=== PATIENT | male | born 1945 | race Caucasian/White ===

== ENCOUNTER 2022-09-03 09:43 | Inpatient (IN) ==
[2022-09-03] MEDS ORDERED: ONDANSETRON 4 MG/2 ML VIAL IV STA (10:22)
[2022-09-03] MEDS ORDERED: SODIUM CHLORIDE 0.9% 1,000 ML IV STA (10:22)
[2022-09-03 10:35] LABS: Basophils % 0.6 % (0.0-0.8); Eosinophils # 0.3 10*3/uL (0.0-0.87); Eosinophils % 4.3 % (0.00-10.9); Hematocrit 48.1 VOL% (42.0-52.0); Hemoglobin 15.4 GM/DL (14.0-18.0); Immature Granulocytes % 0.3 %; Immature Granulocytes Absolute 0.02 #; Lymphocytes % 15.6 % (21.2-54.2); Mean Corpuscular Volume 89.9 FL (87-102); Mean Platelet Volume 9.8 FL (9.6-12.0); Monocytes # 0.5 10*3/uL (0.11-0.8); Monocytes % 7.4 % (1.7-12.7); Neutrophils % 71.8 % (38.7-73.9); Platelet Count 175 T/CUMM (130-400); Red Blood Count 5.35 MC/CUMM (3.8-5.5); Red Cell Distribution Width 13.2 % (9.3-17.3); White Blood Count 6.35 T/CUMM (4-12)
[2022-09-03 10:55] LABS: Albumin 3.7 G/DL (3.4-5.0); Bilirubin,Total 0.8 MG/DL (0.20-1.00); Calcium 9.3 MG/DL (8.5-10.1); Osmolality,Calculated 284.4 MOS/KG (273-304); Potassium 4.4 MMOL/L (3.5-5.1); Total Protein 6.9 G/DL (6.4-8.2)
[2022-09-03] MEDS ORDERED: hydrALAZINE 20 MG/1 ML VIAL IV PRN (13:22)
[2022-09-03] MEDS ORDERED: GLUCAGON 1 MG VIAL IM PRN (13:25)
[2022-09-03] MEDS ORDERED: DEXTROSE 10% 250 ML BAG IV PRN (13:34)
[2022-09-03] MEDS: FLUCONAZOLE INJ 100 MG/50 ML PREMIX IV SCH (14:03)
[2022-09-03] MEDS: SODIUM CHLORIDE 0.9% 1,000 ML IV SCH (14:30)
[2022-09-03] MEDS: PANTOPRAZOLE 40 MG VIAL IV SCH (14:30)
[2022-09-03] MEDS: MICONAZOLE 2% CREAM 57 GM TUBE TOP SCH (16:50)
[2022-09-03] MEDS: INSULIN LISPRO 100 UNIT/ML SUBCUT SCH ×2 (17:13→23:37)
[2022-09-04] MEDS: SODIUM CHLORIDE 0.9% 1,000 ML IV SCH ×2 (04:15→19:55)
[2022-09-04] MEDS: INSULIN LISPRO 100 UNIT/ML SUBCUT SCH ×3 (06:21→17:31)
[2022-09-04 06:43] LABS: Basophils # 0.1 10*3/uL (0.0-0.2); Basophils % 0.7 % (0.0-0.8); Eosinophils # 0.4 10*3/uL (0.0-0.87); Eosinophils % 6.3 % (0.00-10.9); Hematocrit 50.9 VOL% (42.0-52.0); Hemoglobin 15.7 GM/DL (14.0-18.0); Immature Granulocytes % 0.1 %; Immature Granulocytes Absolute 0.01 #; Lymphocytes # 1.6 10*3/uL (1.4-4.0); Lymphocytes % 22.9 % (21.2-54.2); Mean Corpuscular HGB Conc 30.8 GM/DL (32-36); Mean Corpuscular Volume 92.7 FL (87-102); Mean Platelet Volume 9.9 FL (9.6-12.0); Monocytes # 0.5 10*3/uL (0.11-0.8); Monocytes % 6.6 % (1.7-12.7); Neutrophils % 63.4 % (38.7-73.9); Platelet Count 204 T/CUMM (130-400); Red Blood Count 5.49 MC/CUMM (3.8-5.5); Red Cell Distribution Width 13.3 % (9.3-17.3); White Blood Count 6.85 T/CUMM (4-12)
[2022-09-04] MEDS: MICONAZOLE 2% CREAM 57 GM TUBE TOP SCH (09:57)
[2022-09-04] MEDS: PANTOPRAZOLE 40 MG VIAL IV SCH (10:33)
[2022-09-04] MEDS: FLUCONAZOLE INJ 100 MG/50 ML PREMIX IV SCH (15:05)
[2022-09-04] MEDS: carvediloL 12.5 MG TABLET PO SCH (17:09)
[2022-09-04] MEDS: LOSARTAN 50 MG TABLET PO SCH (20:49)
[2022-09-05] MEDS: INSULIN LISPRO 100 UNIT/ML SUBCUT SCH ×5 (02:13→21:14)
[2022-09-05] MEDS: ONDANSETRON 4 MG/2 ML VIAL IV PRN ×3 (02:52→15:04)
[2022-09-05 05:39] LABS: Basophils % 0.8 % (0.0-0.8); Eosinophils # 0.3 10*3/uL (0.0-0.87); Eosinophils % 6.1 % (0.00-10.9); Hematocrit 41.8 VOL% (42.0-52.0); Hemoglobin 13.3 GM/DL (14.0-18.0); Immature Granulocytes % 0.2 %; Immature Granulocytes Absolute 0.01 #; Lymphocytes # 0.8 10*3/uL (1.4-4.0); Lymphocytes % 17.1 % (21.2-54.2); Mean Corpuscular HGB Conc 31.8 GM/DL (32-36); Mean Corpuscular Volume 90.5 FL (87-102); Mean Platelet Volume 10.2 FL (9.6-12.0); Monocytes # 0.4 10*3/uL (0.11-0.8); Neutrophils % 66.8 % (38.7-73.9); Platelet Count 136 T/CUMM (130-400); Red Blood Count 4.62 MC/CUMM (3.8-5.5)
[2022-09-05 06:01] LABS: Calcium 8.2 MG/DL (8.5-10.1); Osmolality,Calculated 285.4 MOS/KG (273-304); Potassium 3.7 MMOL/L (3.5-5.1)
[2022-09-05] MEDS: LEVOTHYROXINE 100 MCG TABLET PO SCH (06:04)
[2022-09-05] MEDS: PANTOPRAZOLE 40 MG VIAL IV SCH (08:57)
[2022-09-05] MEDS: ATORVASTATIN 40 MG TABLET PO SCH (08:58)
[2022-09-05] MEDS: carvediloL 12.5 MG TABLET PO SCH ×2 (08:58→17:17)
[2022-09-05] MEDS: MICONAZOLE 2% CREAM 57 GM TUBE TOP SCH (08:59)
[2022-09-05] MEDS ORDERED: ESCITALOPRAM 10 MG TABLET PO SCH (09:00)
[2022-09-05] MEDS: SODIUM CHLORIDE 0.9% 1,000 ML IV SCH ×2 (09:02→22:35)
[2022-09-05] MEDS ORDERED: ONDANSETRON 4 MG/2 ML VIAL IV ONE (09:10)
[2022-09-05] MEDS ORDERED: ONDANSETRON 4 MG/2 ML VIAL IV PRN (09:10)
[2022-09-05] MEDS: LOSARTAN 50 MG TABLET PO SCH (21:11)
[2022-09-05] MEDS: METOCLOPRAMIDE 10 MG/2 ML VIAL IV SCH (21:13)
[2022-09-06] MEDS: METOCLOPRAMIDE 10 MG/2 ML VIAL IV SCH ×3 (05:56→20:46)
[2022-09-06] MEDS: LEVOTHYROXINE 100 MCG TABLET PO SCH (05:56)
[2022-09-06 07:25] LABS: Basophils % 0.7 % (0.0-0.8); Eosinophils # 0.3 10*3/uL (0.0-0.87); Eosinophils % 5.2 % (0.00-10.9); Hematocrit 45.4 VOL% (42.0-52.0); Hemoglobin 14.3 GM/DL (14.0-18.0); Immature Granulocytes % 0.3 %; Immature Granulocytes Absolute 0.02 #; Lymphocytes # 1.1 10*3/uL (1.4-4.0); Lymphocytes % 18.7 % (21.2-54.2); Mean Corpuscular HGB Conc 31.5 GM/DL (32-36); Mean Corpuscular Volume 91.7 FL (87-102); Mean Platelet Volume 9.6 FL (9.6-12.0); Monocytes # 0.4 10*3/uL (0.11-0.8); Monocytes % 7.4 % (1.7-12.7); Neutrophils % 67.7 % (38.7-73.9); Platelet Count 149 T/CUMM (130-400); Red Blood Count 4.95 MC/CUMM (3.8-5.5); White Blood Count 5.93 T/CUMM (4-12)
[2022-09-06 07:41] LABS: Calcium 8.5 MG/DL (8.5-10.1); Potassium 4.1 MMOL/L (3.5-5.1)
[2022-09-06] MEDS: INSULIN LISPRO 100 UNIT/ML SUBCUT SCH ×4 (07:47→21:10)
[2022-09-06] MEDS: PANTOPRAZOLE 40 MG VIAL IV SCH (08:46)
[2022-09-06] MEDS: carvediloL 12.5 MG TABLET PO SCH ×2 (09:08→16:55)
[2022-09-06] MEDS: MICONAZOLE 2% CREAM 57 GM TUBE TOP SCH (10:10)
[2022-09-06] MEDS: ATORVASTATIN 40 MG TABLET PO SCH (12:40)
[2022-09-06] MEDS: SODIUM CHLORIDE 0.9% 1,000 ML IV SCH (17:42)
[2022-09-06] MEDS: LOSARTAN 50 MG TABLET PO SCH (20:46)
[2022-09-07] MEDS: METOCLOPRAMIDE 10 MG/2 ML VIAL IV SCH (04:48)
[2022-09-07] MEDS: LEVOTHYROXINE 100 MCG TABLET PO SCH (05:45)
[2022-09-07] MEDS: INSULIN LISPRO 100 UNIT/ML SUBCUT SCH ×4 (07:30→20:36)
[2022-09-07] MEDS ORDERED: GLUCAGON 1 MG VIAL IM PRN (09:34)
[2022-09-07] MEDS ORDERED: DEXTROSE 50% 25 GM/50 ML VIAL IV PRN (09:34)
[2022-09-07] MEDS ORDERED: ONDANSETRON ODT 4 MG TABLET PO PRN (09:35)
[2022-09-07] MEDS ORDERED: NON-FORMULARY MEDICATION (Insulin Degludec-Liraglutide [Xultophy 100/3.6] 100 unit-3.6 mg SUBCUT SCH (09:35)
[2022-09-07] MEDS: PANTOPRAZOLE 40 MG VIAL IV SCH (09:50)
[2022-09-07] MEDS ORDERED: metFORMIN 500 MG TABLET PO SCH (10:00)
[2022-09-07] MEDS: ATORVASTATIN 40 MG TABLET PO SCH (10:00)
[2022-09-07] MEDS ORDERED: FUROSEMIDE 20 MG TABLET PO SCH (10:00)
[2022-09-07] MEDS: carvediloL 12.5 MG TABLET PO SCH ×2 (10:00→16:26)
[2022-09-07] MEDS: SODIUM CHLORIDE 0.9% 1,000 ML IV SCH (10:01)
[2022-09-07] MEDS: ASPIRIN CHEW 81 MG TABLET PO SCH (10:13)
[2022-09-07] MEDS: DAPAGLIFLOZIN 10 MG TABLET PO SCH (10:13)
[2022-09-07] MEDS: CLOPIDOGREL 75 MG TABLET PO SCH (10:13)
[2022-09-07] MEDS: MICONAZOLE 2% CREAM 57 GM TUBE TOP SCH (10:18)
[2022-09-07] MEDS: METOCLOPRAMIDE 10 MG TABLET PO SCH (16:25)
[2022-09-07] MEDS: LOSARTAN 50 MG TABLET PO SCH (20:21)
[2022-09-08] MEDS: LEVOTHYROXINE 100 MCG TABLET PO SCH (06:07)
[2022-09-08] MEDS ORDERED: PANTOPRAZOLE 40 MG TABLET PO SCH (09:00)
[2022-09-08] MEDS ORDERED: KETOCONAZOLE 2% SHAMPOO TOP SCH (09:00)
[2022-09-08] MEDS: METOCLOPRAMIDE 10 MG TABLET PO SCH ×2 (11:09→11:32)
[2022-09-08] MEDS: CLOPIDOGREL 75 MG TABLET PO SCH (11:10)
[2022-09-08] MEDS: ASPIRIN CHEW 81 MG TABLET PO SCH (11:10)
[2022-09-08] MEDS: carvediloL 12.5 MG TABLET PO SCH (11:10)
[2022-09-08] MEDS: DAPAGLIFLOZIN 10 MG TABLET PO SCH (11:10)
[2022-09-08] MEDS: ATORVASTATIN 40 MG TABLET PO SCH (11:11)
[2022-09-08] MEDS: MICONAZOLE 2% CREAM 57 GM TUBE TOP SCH (11:13)
[2022-09-08] MEDS: INSULIN LISPRO 100 UNIT/ML SUBCUT SCH ×2 (11:13→11:32)
[2022-09-08 12:10] VITALS: BP 153/61
== END 2022-09-08 13:55 | disposition home or self-care (01) | DRG 74 ==
LOC: N.EDINP 09:43 → N.ED 09:43 → SUATTDRO 13:22 → N.3E 15:19 → SUATTDRO 09-05 09:11
PROVIDERS: ADMIT Internal Medicine; ATTEND Hospitalist